=== PATIENT | female | born 1965 | race American Indian/Alaskan Native ===

== ENCOUNTER 2017-05-30 11:55 | Inpatient (IN) | payer SELFPAY ==
--- NOTE | 2017-05-30 13:03 | C.PDOC ---
History Of Present Illness 51-year-old female brought to the emergency department by ambulance from [facility] for evaluation of depression. Patient states she has been feeling very depressed for several months. Her best friend was recently diagnosed with cancer, and her boyfriend also broke up with her two months ago. Patient admits she \has had thoughts of hurting herself, but denies specific plan. She denies physical complaints. Time Seen by Provider: 05/30/17 11:57 Chief Complaint (Nursing): Psychiatric Evaluation History Per: Patient History/Exam Limitations: no limitations Onset/Duration Of Symptoms: Persistent Current Symptoms Are (Timing): Still Present Severity: Moderate Associated Symptoms: Depression, Suicidal Thoughts. denies: Suicidal Plan Past Medical History Reviewed: Historical Data, Nursing Documentation, Vital Signs Vital Signs: Last Vital Signs Temp 98.0 F 05/30/17 16:23 Pulse 93 H 05/31/17 16:22 Resp 22 05/30/17 16:23 BP 120/84 05/31/17 16:22 Pulse Ox 100 05/30/17 15:28 - Medical History PMH: Depression, Hypothyroidism Family History: States: No Known Family Hx - Social History Hx Tobacco Use: No Hx Alcohol Use: No Hx Substance Use: No - Immunization History Hx Tetanus Toxoid Vaccination: No Hx Influenza Vaccination: No Hx Pneumococcal Vaccination: No Review Of Systems Except As Marked, All Systems Reviewed And Found Negative. Constitutional: Negative for: Fever Cardiovascular: Negative for: Chest Pain, Palpitations Respiratory: Negative for: Cough, Shortness of Breath Gastrointestinal: Negative for: Nausea, Vomiting, Abdominal Pain, Diarrhea Psych: Positive for: Depression, Suicidal ideation. Negative for: Anxiety, Psychosis Physical Exam - Physical Exam Appears: Well, Non-toxic, Other (tearful, flat affect) Skin: Warm, Dry, No Rash Eye(s): bilateral: Normal Inspection Oral Mucosa: Moist Neck: Supple Cardiovascular: Rhythm Regular Respiratory: Normal Breath Sounds, No Rales, No Rhonchi, No Wheezing Extremity: Normal ROM Extremity: Bilateral: Atraumatic, Normal ROM Neurological/Psych: Oriented x3 Gait: Steady ED Course And Treatment - Laboratory Results Result Diagrams: 05/30/17 13:13 05/31/17 08:27 O2 Sat by Pulse Oximetry: 98 (RA) Pulse Ox Interpretation: Normal Progress Note: Blood work, UA, UDS ordered and reviewed. Patient placed on 1:1 observation. 15:00- Patient medically cleared. 15:13- Patient accepted for psychiatric admission for depression by Dr. Jacques. Disposition - Disposition Disposition: HOSPITALIZED Disposition Time: 15:13 Condition: STABLE - Clinical Impression Clinical Impression: Depression - Scribe Statement The provider has reviewed the documentation as recorded by the Scribe (Sameer Lentz) All medical record entries made by the Scribe were at my direction and personally dictated by me. I have reviewed the chart and agree that the record accurately reflects my personal performance of the history, physical exam, medical decision making, and the department course for this patient. I have also personally directed, reviewed, and agree with the discharge instructions and disposition. Decision To Admit - Pt Status Changed To: Hospital Disposition Of: Inpatient - Admit Certification Admit to Inpatient:: After my assessment, the patient will require hospitalization for at least two midnights. This is because of the severity of symptoms shown, intensity of services needed, and/or the medical risk in this patient being treated as an outpatient. - InPatient: Physician Admission Certification: I certify that this patient requires 2 or more midnights of care for the following reason:: see notes - . Bed Request Type: Psychiatry Admitting Physician: Jim Jacques Patient Diagnosis: Depression
[2017-05-30 13:25] LABS: BASO % 0.9 % (0.0-2.0); EOS % 1.5 % (0.0-4.0); HEMATOCRIT 38.7 % (34.0-47.0); LYMPH # 1.6 K/uL (1.0-4.3); LYMPH % 49.3 % (20.0-40.0); MEAN CELL VOLUME 96.7 fL (81.0-99.0); MEAN CORPUSCULAR HEMOGLOBIN 32.4 pg (27.0-31.0); MEAN CORPUSCULAR HGB CONC 33.5 g/dL (33.0-37.0); MEAN PLATELET VOLUME 7.7 fL (7.2-11.7); MONO # 0.2 K/uL (0.0-0.8); MONO % 7.8 % (0.0-10.0); NRBC % 0.1 % (0.0-2.0); RED CELL DISTRIBUTION WIDTH 13.6 % (11.5-14.5); WHITE BLOOD COUNT 3.2 K/uL (4.8-10.8)
[2017-05-30 13:36] LABS: RBC URINE 11 /hpf (0-3); URINE BILIRUBIN NEGATIVE (NEGATIVE); URINE BLOOD 3+ (NEGATIVE); URINE COLOR Yellow (YELLOW); URINE GLUCOSE (UA) NORMAL (Normal); URINE KETONE NEGATIVE (NEGATIVE); URINE LEUKOCYTE ESTERASE NEG Leu/uL (Negative); URINE PROTEIN NEGATIVE (NEGATIVE); URINE UROBILINOGEN NORMAL mg/dL (0.2-1.0); WBC URINE < 1 /hpf (0-5)
[2017-05-30 13:42] LABS: ALCOHOL SERUM < 10 mg/dl (0-10); ALKALINE PHOSPHATASE 63 U/L (38-126); ALT/SGPT 39 U/L (9-52); AST/SGOT 28 U/L (14-36); BILIRUBIN,TOTAL 0.9 mg/dL (0.2-1.3); BLOOD UREA NITROGEN 10 mg/dL (7-17); CALCIUM 8.9 mg/dl (8.6-10.4); CARBON DIOXIDE 28 mmol/L (22-30); CHLORIDE 102 mmol/L (98-107); GFR AFRICAN-AMERICAN > 60; GLUCOSE,RANDOM 88 mg/dL (65-105); POTASSIUM 3.4 mmol/L (3.6-5.2); SODIUM 137 mmol/L (132-148); TOTAL PROTEIN 8.5 g/dL (6.3-8.3)
[2017-05-30 16:24] VITALS: RESP 22; TEMP 98
[2017-05-30] MEDS ORDERED: Potassium Chloride 20 mEq ER Tab PO ONE (17:15)
--- NOTE | 2017-05-30 17:23 | PCM.BM ---
<Arun Darling - Last Filed: 05/30/17 17:20> Treatment Plan Problems - Problems identified on initial assessmt Depression Date Initiated: 05/30/17 Time Initiated: 15:45 Assessment reference: NA Status: Active Treatment assets and liabiliti Patient Assests: ADL independent, physically healthy Patient Liabilities: poor support system, dietary restrictions ([place] allergy) - Milieu Protocol Maintain good personal hygiene: daily Encourage regular showers, daily Remind patient to perform daily oral care Conduct patient checks and document Observation sheet: Q15 minutes Maintain personal safety: every shift Educate patient to report safety concerns to staff, every shift Monitor environment for contraband/sharps Medication safety: Monitor for expected outcome, potential side effects: every shift, Assess barriers to learning: every shift, Assess readiness for medication education: every shift <Leonard Schwarz - Last Filed: 06/01/17 04:16> - Diagnosis (1) Depression, major, single episode, severe Status: Acute Interventions: 06/01/17 04:16 * Assess/adjust medications daily and /or as needed * See patient on an individual basis 7x/week to assess symptoms of depression * Monitor for side effects & effectiveness of medications *
[2017-05-31] MEDS: Levothyroxine 150 MCG TAB PO SCH (06:22)
[2017-05-31 08:52] LABS: ALB/GLOB RATIO 1.4 (1.0-2.1); ALKALINE PHOSPHATASE 61 U/L (38-126); ALT/SGPT 32 U/L (9-52); AST/SGOT 21 U/L (14-36); BILIRUBIN,TOTAL 1.6 mg/dL (0.2-1.3); BLOOD UREA NITROGEN 7 mg/dL (7-17); CALCIUM 8.9 mg/dl (8.6-10.4); CARBON DIOXIDE 28 mmol/L (22-30); CHLORIDE 101 mmol/L (98-107); GFR AFRICAN-AMERICAN > 60; GLUCOSE,RANDOM 84 mg/dL (65-105); POTASSIUM 3.8 mmol/L (3.6-5.2); SODIUM 137 mmol/L (132-148); TOTAL PROTEIN 7.3 g/dL (6.3-8.3)
[2017-05-31 16:22] VITALS: BP 120/84; PULSE 93
--- NOTE | 2017-05-31 19:26 | PCM.PSYCH ---
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 The niece said she doesn't work today, so the pt stayed but only after tomorrow, she added. She is a 51 yo AAF, single, no child, lives with her mother who has Alzheimer, she is employed. The pt reports depressive sxs for some time, and finally she was referred to [facility] but she was referred to our ER from [facility] when she voiced SI, She admits to thinking about it but then say "who doesn't?" and claims she never had an urge, intention or plan. She is depressed b/c she had lost her sister a yaer ago, broke up with BF a month ago and a close friend was dx'ed with cancer. She reports anhedonia and sadness, very poor sleep and loss of appetite. Denies all SI now No manic or psychotic sxs No NARENDRA Past psych hx: Denies Family psych hx: Younger brother and cousin had sxs Medical hx: Denies Current Medications: Active Medications Generic Name Dose Route Start Last Admin Trade Name Freq PRN Reason Stop Dose Admin Hydroxyzine HCl 25 mg 05/30/17 16:43 05/30/17 20:57 Atarax PO 25 mg Q6H PRN Administration Anxiety Levothyroxine Sodium 150 mcg 05/31/17 06:30 05/31/17 06:22 Synthroid PO 150 mcg DAILY@0630 LIO Administration Mirtazapine 15 mg 05/31/17 22:00 Remeron PO HS LIO Trazodone HCl 50 mg 05/30/17 16:43 05/30/17 20:57 Desyrel PO 50 mg HS PRN Administration Insomnia Past Psychiatric History - Past Psychiatric History Previous Treatment History: None Pertinent Medical Hx (Current Medical&Sleep Prob, Allergies): Allergies Allergy/AdvReac Type Severity Reaction Status Date / Time No Known Allergies Allergy Unverified 08/07/13 19:18 Levothyroxine [Levoxyl] 0.15 mg PO DAILY 05/30/17 Review of Systems - Neurological Neurological: UNREMARKABLE - Psychiatric Psychiatric: Abnormal Sleep Pattern, Anhedonia, Anxiety, Depression, Difficulty Concentrating, Irritability. absent: Hallucinations, Homicidal Ideation, Paranoia, Suicidal Ideation Mental Status Examination - Personal Presentation Personal Presentation: Looks stated age - Affect Affect: Constricted - Motor Activity Motor Activity: Calm - Reliability in Providing Information Reliability in Providing Information: Fair - Speech Speech: Organized - Mood Mood: Depressed, Anxious - Formal Thought Process Formal Thought Process: No Impairment - Cognitive Functions Orientation: Person, Place, Situation, Time Sensorium: Alert Attention/Concentration: Attentive Estimate of Intelligence: Average Judgement: Imparied, as evidence by: Poor judgement (wants to leave) Memory: Recent intact, as evidence by: Ability to recall events of the day, Remote intact, as evidenced by: Abilit to recall sig. life events - Risk Risk: Diminished functioning - Strength & Assets Inventory Strength & Assets Inventory: Employment history, Cooperative - Limitations Limitations: Other (losses) DSM 5 DX - DSM 5 DSM 5 Diagnosis: Major depressive d/o - recurrent, severe, w/o psychosis Anxiety d/o - unspecified Bereavement - Recommended/Plan of Treatment Treatment Recommendations and Plan of Treatment: Remeron for depressoin and insomnia/loss of appetite Support and psychoed Continue monitoring for depressive sx and SI Possible dc tomorrow, she will put in a 48-hr notice Refer to [facility] - an appointment is made 32 min Projected ELOS: 2-3 days Prognosis: good w treatment
[2017-06-01] MEDS: Levothyroxine 150 MCG TAB PO SCH (07:50)
--- NOTE | 2017-06-01 13:10 | PCM.PYCHDC ---
Mental Status Examination - Mental Status Examination Orientation: Person, Place, Situation, Time Memory: Intact Mood: Neutral Affect: Constricted Speech: Soft Attention: WNL Concentration: WNL Association: WNL Fund of Knowledge: WNL Formal Thought Process: No Impairment Description of patient's judgement and insight: good, fair Psychotic Thoughts and Behaviors: denies any AVH Suicidal Ideation: No Current Homicidal Ideation?: No Discharge Summary - Discharge Note Reason for Hospitalization: The pt is seen, chart reviewed and case discussed Metal Solderer also called her niece in front of her with her permission, b/c the pt was insisting on leaving AMA claiming her niece who is looking after pt's mother with dementia had to work. The niece said she doesn't work today, so the pt stayed but only after tomorrow, she added. She is a 51 yo AAF, single, no child, lives with her mother who has Alzheimer, she is employed. The pt reports depressive sxs for some time, and finally she was referred to [facility] but she was referred to our ER from [facility] when she voiced SI, She admits to thinking about it but then say "who doesn't?" and claims she never had an urge, intention or plan. She is depressed b/c she had lost her sister a yaer ago, broke up with BF a month ago and a close friend was dx'ed with cancer. She reports anhedonia and sadness, very poor sleep and loss of appetite. Denies all SI now No manic or psychotic sxs No NARENDRA Consultations:: List each consultation separately and include: 1. Reason for request. 2. Findings. 3. Follow-up Summary of Hospital Course include:: 1. Description of specific treatment plan utilized for patients during their course of treatmen. 2. Summarize the time- course for resolution of acute symptoms and/or regressed behaviors. 3. Describe issues identified and worked on during hospitalization. 4. Describe medication utilized. 5. Describe medical problems identified and treated. 6. Reassessment of suicide risk Summary of Hospital Course: During the course of her stay, patient (pt) started progressively improving and she no longer remained anxious, depressed and suicidal. Her mood was getting better and she started attending groups and meetings and started socializing. The doses of her medications were maximized and patient denied any feelings of hopelessness, helplessness, and worthlessness, denied any problem with the sleep or appetite, denied suicidal ideation or homicidal ideation. Pt denied any auditory or visual hallucinations. Patient reported improvement in her mood and tolerated these medications very well and denied any side effects. She was discharged to outpatient clinic/ private psychiatrist - Final Diagnosis (DSM 5) Condition upon Discharge: STABLE DSM 5: Major depressive d/o - recurrent, severe, w/o psychosis Anxiety d/o - unspecified Bereavement Disposition: HOME/ ROUTINE Follow-up Treatment Plan: Education: Pt was educated and counseled about the risks and benefits of taking and not taking medications. Pt was educated and counseled about the risks of drinking and abusing drugs. Pt was educated and counseled to go to the ER or call 911 if pt develop suicidal ideation or homicidal ideation, worsening of symptoms or severe side effects of the meds. Prescriptions/Medication Reconciliation: Levothyroxine [Synthroid] 150 mcg PO DAILY@0630 #14 tab Mirtazapine [Remeron] 15 mg PO HS #14 tab traZODone [Desyrel] 50 mg PO HS #14 tab - Smoking Cessation Smoking Cessation Medication prescribed: No - Antipsychotic Medications Pt discharged on 2 or more routine antipsychotic medications: No
[2017-06-02 13:08] VITALS: O2SAT 98
== END 2017-06-01 14:14 | disposition home or self-care (01) | DRG 885 ==
LOC: C.ER 11:55 → C.5E 15:13
PROVIDERS: ADMIT Psychiatry & Neurology Psychiatry; ATTEND Psychiatry & Neurology Psychiatry
PROC: GZHZZZZ Group Psychotherapy (ICD-10-PCS; principal; 2017-05-30)
PROC: GZ56ZZZ Individual Psychotherapy, Supportive (ICD-10-PCS; 2017-05-30)
DX: F33.2 Major depressive disorder, recurrent severe without psychotic features (principal); R45.851 Suicidal ideations; E03.9 Hypothyroidism, unspecified; F41.9 Anxiety disorder, unspecified; Z63.4 Disappearance and death of family member